=== PATIENT | female | born 1965 | race Caucasian/White ===

== ENCOUNTER 2016-12-28 15:44 | Outpatient (CLI) | payer OTHER ==
--- NOTE | 2016-12-28 18:48 | ULT ---
ULTRASOUND DOPPLER TRANSVAGINAL WITH DOPPLER 12/28/16 HISTORY: Abnormal pelvic examination. History of breast cancer. COMPARISON: None. FINDINGS: The uterus is retroverted. The uterus measures 5.9 x 3.4 x 2.8 cm. Right ovary measures 2.2 x 1.5 x 1.8 cm and left ovary measures 1.6 x 1.3 x 1.3 cm. Adequate vascular flow. Endometrial thickness is 7 mm, abnormal. IMPRESSION: 1. Abnormally thickened endometrium measuring 7 mm. Direct visualization and biopsy recommended . 2. Hypodensity along the submucosal uterine body may be a small fibroid. POS: [id number]
== END 2016-12-28 15:45 | disposition home or self-care (01) ==
LOC: ULT 15:44
PROVIDERS: ATTEND Family Medicine
DX: N84.1 Polyp of cervix uteri (principal); R93.8 Abnormal findings on diagnostic imaging of other specified body structures
CPT/HCPCS: 76856